=== PATIENT | female | born 1990 | race Caucasian/White ===

== ENCOUNTER 2016-09-24 00:25 | Emergency (ER) | payer OTHER ==
[~2016-09-24] VITALS: Ht 167.6 cm; Wt 74.8 kg
[~2016-09-24 00:25] MED LIST: ACETAMINOPHEN; DOXYCYCLINE HY100 M5 PO; ESCITALOPRAM20 MG PO; FLAGYL500 M1 PO; INDERAL20 M1 PO; LEVAQUIN500 MG PO; PANTOPRAZOLE40 MG PO; PEPTOBISMOL PRN; PLAQUENIL200 MG PO; PREDNISONE5 MG/5 ML PO; TOPIRAMATE25 MG PO; VICODIN 5/500 M1 TAB; ZANTAC; ZOFRAN4 M1 PO
[2016-09-24 00:39] VITALS: BP 139/98
--- NOTE | 2016-09-24 02:04 | NUR ---
Patient to bed 08.
[2016-09-24] MEDS ORDERED: ONDANSETRON 4 MG/2 ML VIAL IVP ONE (02:10)
[2016-09-24] MEDS ORDERED: KETOROLAC 30 MG/ML VIAL IVP ONE (02:10)
[2016-09-24] MEDS ORDERED: NACL 0.9% 500 ML IV ONE ×2 (02:10)
--- NOTE | 2016-09-24 02:11 | NUR ---
PT C/O ABD PAIN RADIATING TO HER BACK WITH DIARRHEA, SHE WAS JUST D/C FROM [facility] , WITH DX OF POSSIBLE KISNEY STONES. C/O N/V. SKIN IS PINK/WARM/DRY; AAOX4 WITH EVEN AND STEADY GAIT; LUNGS CLEAR BL; HR EVEN AND REGULAR; PT DENIES ANY FEVER, CP, SOB, OR COUGH AT THIS TIME; PATIENT STATES PAIN OF 10/10 AT THIS TIME; VSS; PATIENT POSITIONED FOR COMFORT; HOB ELEVATED; BEDRAILS UP X2; BED DOWN. ER MD MADE AWARE OF PT STATUS.
--- NOTE | 2016-09-24 02:12 | NUR ---
Dr. Guajardo evaluating patient at bedside.
--- NOTE | 2016-09-24 02:37 | NUR ---
Patient going to CT via wheelchair per tech.
--- NOTE | 2016-09-24 02:51 | NUR ---
Patient back from CT via wheelchair per tech.
[2016-09-24] MEDS ORDERED: metroNIDAZOLE 500 MG/NS PREMIX 100 ML IV ONE (03:20)
[2016-09-24] MEDS ORDERED: SULFAMETH/TRIMETH DS 800/160MG 1 TAB PO ONE (03:20)
--- NOTE | 2016-09-24 04:49 | NUR ---
Patient discharged with v/s stable. Written and verbal after care instructions given and explained. Patient alert, oriented and verbalized understanding of instructions. Ambulatory with steady gait. All questions addressed prior to discharge. ID band removed. Patient advised to follow up with PMD. Rx of FLAGYL, BACTRIM, TRAMADOL AND TYLENOL WITH CODEINE given. Patient educated on indication of medication including possible reaction and side effects. Opportunity to ask questions provided and answered.
[2016-09-24 04:50] VITALS: BP 103/63
[2016-12-11] MEDS ORDERED: MEXATE2.5 MG PO (17:01)
[2016-12-11] MEDS ORDERED: ELAVIL50 MG PO (17:01)
[2016-12-11] MEDS ORDERED: ATIVAN0.5 MG PO (17:01)
[2016-12-11] MEDS ORDERED: XANAX0.5 MG PO (17:01)
[2016-12-11] MEDS ORDERED: VITAMIN D50000 I4 PO (17:01)
[2016-12-11] MEDS ORDERED: NEPHRO-VITE VIT1 TAB PO (17:01)
== END 2016-09-24 04:49 | disposition home or self-care (01) ==
LOC: MED 00:25
DX: K51.00 Ulcerative (chronic) pancolitis without complications (principal); R03.0 Elevated blood-pressure reading, without diagnosis of hypertension
CPT/HCPCS: 36415; 74176; 80053; 81002; 81025; 85025; 96361; 96365; 96375; 99285; J1885; J2405; J3490; J7030

== ENCOUNTER 2017-01-03 22:10 | Emergency (ER) | payer OTHER ==
[~2017-01-03] VITALS: Ht 167.6 cm; Wt 77.1 kg
[~2017-01-03 22:10] MED LIST changes: -ACETAMINOPHEN; +ALPR0.5T2 PO; +ATI.5 PO; -DOXYCYCLINE HY100 M5 PO; +ELA50 PO; -ESCITALOPRAM20 MG PO; -FLAGYL500 M1 PO; +HYDR200T PO; -INDERAL20 M1 PO; -LEVAQUIN500 MG PO; +MEX2.5 PO; -PANTOPRAZOLE40 MG PO; -PEPTOBISMOL PRN; -PLAQUENIL200 MG PO; +PRED5SOL PO; -PREDNISONE5 MG/5 ML PO; -TOPIRAMATE25 MG PO; -VICODIN 5/500 M1 TAB; +VITA1TAB44 PO; -ZANTAC; -ZOFRAN4 M1 PO; +[UNRECOGNIZED DRUG - CODE] PO; +[UNRECOGNIZED DRUG - CODE] PO
[2017-01-03 22:15] VITALS: BP 129/81
--- NOTE | 2017-01-03 22:20 | NUR ---
CALLED POISON CONTROLL, SPOKE WITH LETITIA ZAMORA RECOMMENDED; DRINK CHARCOAL, LEUCOVORIN 60 MG IV X1, AIRWAY PRECAUTION, ASPIRATE PRECAUTION, AIRLINE STEWARDESS, LAB; CBC CMP, DRUG SCREEN, EKG, LFT. ER MD MADE AWARE OF PT. CONDITION.
--- NOTE | 2017-01-03 22:35 | NUR ---
PATIENT BIB WHEELCHAIR TO ER BED 5.
--- NOTE | 2017-01-03 22:37 | NUR ---
26 Y/O F BIB FRIEND W/C/O PT TOOK MULTIPLE MEDICATIONS X 30 MINS. LORAZEPAM, METHOTREXATE, AMITRYPTYLINE, SUMATRIPTAN, TOPIRAMATE, ALPRAZOLAM. UNKNOWN DOSE. HX. DEPRESSION, ANXIETY. VSS, ALTERED LOC, ON SOCIAL SCIENCES INSTRUCTOR, SINUS RHYTHM, ER MD NOTIFIED.
[2017-01-03 23:05] LABS: AMPHETAMINE, URINE NEG. ng/ml (NEG <=1000); BARBITURATE, URINE NEG. ng/ml (NEG <=200); BENZODIAZEPINE, URINE NEG. ng/mL (NEG <=200); CANNABINOID, URINE NEG. ng/mL (NEG <=50); COCAINE, URINE NEG. ng/mL (NEG <=300); OPIATE, URINE NEG. ng/mL (NEG <=2000); PHENCYCLIDINE SCREEN,URINE NEG. ng/mL (NEG <=25)
--- NOTE | 2017-01-03 23:05 | NUR ---
PATIENT BEING EVALUATED BY DR. BLUE.
[2017-01-03 23:08] LABS: CALCIUM 8.7 mg/dL (8.5-10.1); CARBON DIOXIDE 22.6 mmol/L (21-32); CREATININE 0.8 mg/dL (0.6-1.3); POTASSIUM 3.6 mmol/L (3.5-5.1)
[2017-01-03 23:13] LABS: BILIRUBIN,DIRECT 0.1 mg/dL (0.0-0.3); TOTAL BILIRUBIN 0.5 mg/dL (0.0-1.0); TOTAL PROTEIN, SERUM 8.2 g/dL (6.4-8.2)
[2017-01-03 23:47] LABS: BASOPHILS # (AUTO) 0.3 K/uL (0.00-0.22); BASOPHILS % (AUTO) 2.2 % (0.0-2.0); EOSINOPHILS # (AUTO) 0.1 K/uL (0-0.4); EOSINOPHILS % (AUTO) 0.8 % (0.0-4.0); HEMATOCRIT 44.6 % (36-48); HEMOGLOBIN 14.4 g/dL (12.0-16.0); LYMPHOCYTES # (AUTO) 1.5 K/uL (2.5-16.5); LYMPHOCYTES % (AUTO) 12.5 % (20.5-51.1); MEAN CORPUSCULAR HEMOGLOBIN 30 pg (27-31); MEAN CORPUSCULAR HGB CONC 32 g/dL (33-37); MEAN CORPUSCULAR VOLUME 93 fL (80-94); MONOCYTES # (AUTO) 0.9 K/uL (0.8-1.0); MONOCYTES % (AUTO) 7.8 % (1.7-9.3); NEUTROPHILS # (AUTO) 9.4 K/uL (1.8-7.7); PLATELET COUNT (AUTO) 426 K/uL (140-450); RED CELL DISTRIBUTION WIDTH 12.5 % (11.6-13.7); WHITE BLOOD COUNT (AUTO) 12.2 K/uL (4.8-10.8)
[2017-01-03 23:48] LABS: NEUTROPHILS % (AUTO) 76.7 % (42.2-75.2)
[2017-01-04] MEDS ORDERED: SODIUM BICARBONATE 8.4% 100 MEQ in DEXTROSE 5% 1,000 ML IV SCH (00:15)
[2017-01-04] MEDS ORDERED: SODIUM BICARBONATE 8.4% 50 MEQ/50 ML VIAL ONE (00:26)
--- NOTE | 2017-01-04 00:41 | NUR ---
Patient to be transferred to [facility]. Is being transferred due to HIGHER LEVEL OF CARE. Receiving facility has accepting physician and available space. ER physician has signed transfer form. Patient or responsible republican has agreed to transfer and signed form. Patient belongings inventoried and will be sent with patient. Copy of nursing notes, lab reports, EKG, Physicians Orders and X-rays to be sent with patient. Report called to GAYLE SANDERS (EDITOR DICTIONARY ER DEPT) at receiving facility. [facility] ambulance service has been called for transfer. ETA is .
--- NOTE | 2017-01-04 00:57 | NUR ---
90 MIN ETA FOR [facility] TRASPORT.
[2017-01-04 01:16] LABS: ACETAMINOPHEN < 0.5 ug/ml (10-30); ALCOHOL, BLOOD < 3 mg/dL (<3)
[2017-01-04 01:17] LABS: SALICYLATE < 2.8 mg/dL (2.8-20.0)
--- NOTE | 2017-01-04 01:20 | NUR ---
PT SLEEPING, SLIGHLTY SINUS TACH, O2 SAT 99% RA. ER MADE AWARE.
--- NOTE | 2017-01-04 01:41 | NUR ---
PT CONTINUES ASLEEP, A REPEAT BMP DONE BY STATIONARY EQUIPMENT MECHANIC . NICOLETTE LAST NOTIFIED OF CONT INCREASED OF HEART RATE.
--- NOTE | 2017-01-04 01:53 | NUR ---
GAYLE, OPERATIONS SUPERINTENDENT AT [facility] CALLED TO UPDATED HER ON MEDS AND 911 TRASPORT PT WILL BE LEAVING HOSPITAL.
--- NOTE | 2017-01-04 01:57 | NUR ---
911 CALLED FOR PT TRASPORT TO [facility] D/T INCREASED HR, AND [facility] ETA 2 HRS. PT PINK, RESPONDS TO PAIN STIMULUS.
[2017-01-04 02:14] VITALS: BP 121/89
--- NOTE | 2017-01-04 02:14 | NUR ---
PT TAKING VIA AMBULACE [facility] [address] [facility].
[2017-01-04 02:18] LABS: ANION GAP 13.1 (8-16); CALCIUM 8.2 mg/dL (8.5-10.1); CARBON DIOXIDE 24.2 mmol/L (21-32); CREATININE 0.8 mg/dL (0.6-1.3); POTASSIUM 4.3 mmol/L (3.5-5.1)
[2017-01-04] MEDS ORDERED: NACL 0.9% 1,000 ML IV ONE ×2 (05:30)
== END 2017-01-04 02:14 | disposition short-term general hospital (02) ==
LOC: MED 22:10
DX: T45.1X1A Poisoning by antineoplastic and immunosuppressive drugs, accidental (unintentional), initial encounter (principal); T43.011A Poisoning by tricyclic antidepressants, accidental (unintentional), initial encounter; F32.9 Major depressive disorder, single episode, unspecified; Z88.5 Allergy status to narcotic agent; Y92.092 Bedroom in other non-institutional residence as the place of occurrence of the external cause
CPT/HCPCS: 36415; 80048; 80053; 80076; 80305; 85025; 93005; 96361; 96365; 99285; G0480; G0482; J3490; J7030; J7060

== ENCOUNTER 2017-09-04 13:46 | Emergency (ER) | payer OTHER ==
[~2017-09-04] VITALS: Ht 157.5 cm; Wt 76.0 kg
[~2017-09-04 13:46] MED LIST changes: +ERGO500028 PO; +TOPI25TA41 PO; -[UNRECOGNIZED DRUG - CODE] PO; -[UNRECOGNIZED DRUG - CODE] PO
[2017-09-04 13:53] VITALS: BP 117/77
--- NOTE | 2017-09-04 14:08 | NUR ---
PT AMBULATED TO BED 1
--- NOTE | 2017-09-04 14:20 | NUR ---
PATIENT PRESENTS TO ED WITH C/O SUPRAPUBIC RADIATING TO BILATERAL INGUINAL AREAS PRESSURE LIKE PAIN X 3 DAYS DENIES DC NO VAG BLEEDING DENIES DYSURIA HX---LUPUS, ARTHRITIS, HEADACHES RX---TOPAMAX, PREDNISONE 5MG QD, Plaquenil 200MG QD, CIMZIA; DENIES N/V/D; SKIN IS PINK/WARM/DRY; AAOX4 WITH EVEN AND STEADY GAIT; LUNGS CLEAR BL; HR EVEN AND REGULAR; PT DENIES ANY FEVER, CP, SOB, OR COUGH AT THIS TIME; PATIENT STATES PAIN OF 8/10 AT THIS TIME; VSS; PATIENT POSITIONED FOR COMFORT; HOB ELEVATED; BEDRAILS UP X2; BED DOWN. ER MD MADE AWARE OF PT STATUS.
[2017-09-04] MEDS ORDERED: NACL 0.9% 1,000 ML IV SCH (15:29)
[2017-09-04] MEDS ORDERED: ACETAMINOPHEN EXTRA STRENGTH 500 MG TAB PO ONE (15:30)
[2017-09-04] MEDS ORDERED: ONDANSETRON 4 MG/2 ML VIAL IVP ONE (15:30)
[2017-09-04 15:56] LABS: BASOPHILS # (AUTO) 0.5 K/uL (0.00-0.22); EOSINOPHILS # (AUTO) 0.2 K/uL (0-0.4); HEMATOCRIT 45.6 % (36-48); HEMOGLOBIN 14.8 g/dL (12.0-16.0); LYMPHOCYTES # (AUTO) 2.1 K/uL (2.5-16.5); MEAN CORPUSCULAR HEMOGLOBIN 30 pg (27-31); MEAN CORPUSCULAR HGB CONC 32 g/dL (33-37); MEAN CORPUSCULAR VOLUME 91 fL (80-94); MONOCYTES # (AUTO) 1.1 K/uL (0.8-1.0); NEUTROPHILS # (AUTO) 5.8 K/uL (1.8-7.7); PLATELET COUNT (AUTO) 430 K/uL (140-450); RED CELL DISTRIBUTION WIDTH 12.4 % (11.6-13.7); WHITE BLOOD COUNT (AUTO) 9.7 K/uL (4.8-10.8)
[2017-09-04 16:07] LABS: ANION GAP 13.1 (8-16); CARBON DIOXIDE 26.8 mmol/L (21-32); CREATININE 0.8 mg/dL (0.6-1.3); POTASSIUM 3.9 mmol/L (3.5-5.1)
[2017-09-04 16:11] LABS: APPEARANCE,URINE CLEAR (CLEAR); BILIRUBIN,URINE NEGATIVE (NEGATIVE); BLOOD, URINE NEGATIVE (NEGATIVE); LEUKOCYTE ESTERASE ,URINE NEGATIVE (NEGATIVE); NITRITE, URINE NEGATIVE (NEGATIVE); PH,URINE 8.5 (5.0-9.0); UGLUCOSE NEGATIVE (NEGATIVE)
[2017-09-04 16:15] LABS: ALBUMIN 4.1 g/dL (3.4-5.0); TOTAL BILIRUBIN 0.4 mg/dL (0.0-1.0)
[2017-09-04 16:24] LABS: COLOR,URINE STRAW (YELLOW)
[2017-09-04 18:19] VITALS: BP 101/71
== END 2017-09-04 18:19 | disposition home or self-care (01) ==
LOC: MED 13:46
DX: N94.6 Dysmenorrhea, unspecified (principal); L93.0 Discoid lupus erythematosus; Z88.5 Allergy status to narcotic agent; Z90.49 Acquired absence of other specified parts of digestive tract
CPT/HCPCS: 36415; 76856; 80053; 81003; 81025; 83690; 84703; 85025; 96361; 96374; 99285; J2405; J7030; Q0092